=== PATIENT | male | born 1980 | race Caucasian/White ===

== ENCOUNTER 2019-12-01 11:13 | Emergency (ER) | payer SELFPAY ==
[~2019-12-01] VITALS: Ht 188 cm; Wt 84.1 kg
[2019-12-01 11:20] VITALS: BP 115/76; TEMP 97.8
[2019-12-01 13:26] VITALS: PULSE 89
== END 2019-12-01 13:22 | disposition home or self-care (01) ==
LOC: COL.ER 11:13
DX: S61.011A Laceration without foreign body of right thumb without damage to nail, initial encounter (principal); W25.XXXA Contact with sharp glass, initial encounter; Y92.009 Unspecified place in unspecified non-institutional (private) residence as the place of occurrence of the external cause

== ENCOUNTER → 2019-12-16 | Outpatient (CLI) | payer SELFPAY ==
[2019-12-16 16:29] VITALS: PULSE 84; TEMP 97.5
== END ==
LOC: COL.ER 16:14
DX: Z48.02 Encounter for removal of sutures (principal)